=== PATIENT | female | born 1990 | race Caucasian/White ===

== ENCOUNTER 2022-10-16 12:57 | Inpatient (IN) | payer BC ==
[~2022-10-16] VITALS: Ht 170.2 cm; Wt 94.8 kg
[2022-10-16 14:07] VITALS: BP 164/84
[2022-10-16] MEDS ORDERED: MAG SULF 2000 MG/WATER PREMIX 100 ML IV SCH (14:17)
[2022-10-16] MEDS ORDERED: LABETALOL 20 MG/4 ML VIAL IVP SCH (14:30)
[2022-10-16 14:41] LABS: BASOPHILS # (AUTO) 0.1 K/uL (0.00-0.22); EOSINOPHILS # (AUTO) 0.2 K/uL (0-0.4); HEMATOCRIT 33.3 % (36-48); HEMOGLOBIN 10.8 g/dL (12.0-16.0); LYMPHOCYTES # (AUTO) 2.2 K/uL (2.5-16.5); LYMPHOCYTES % (AUTO) 25.9 % (20.5-51.1); MEAN CORPUSCULAR HEMOGLOBIN 26 pg (27-31); MEAN CORPUSCULAR HGB CONC 32 g/dL (33-37); MEAN CORPUSCULAR VOLUME 79.6 fL (80-94); MONOCYTES # (AUTO) 0.5 K/uL (0.8-1.0); MONOCYTES % (AUTO) 6.4 % (1.7-9.3); NEUTROPHILS # (AUTO) 5.4 K/uL (1.8-7.7); NEUTROPHILS % (AUTO) 64.7 % (42.2-75.2); PLATELET COUNT (AUTO) 241 K/uL (140-450); RED BLOOD CELL COUNT(AUTO) 4.19 MIL/uL (4.20-5.40); RED CELL DISTRIBUTION WIDTH 14.1 % (11.6-13.7); WHITE BLOOD COUNT (AUTO) 8.4 K/uL (4.8-10.8)
[2022-10-16 14:49] LABS: APPEARANCE,URINE CLEAR (CLEAR); BILIRUBIN,URINE NEGATIVE (NEGATIVE); BLOOD, URINE 1+ (NEGATIVE); COLOR,URINE YELLOW (YELLOW); LEUKOCYTE ESTERASE ,URINE NEGATIVE (NEGATIVE); NITRITE, URINE NEGATIVE (NEGATIVE); PH,URINE 7.5 (5.0-9.0); UGLUCOSE NEGATIVE (NEGATIVE)
[2022-10-16 15:02] LABS: PROTHROMBIN TIME 9.1 secs (10.8-13.4)
[2022-10-16] MEDS: LACTATED RINGERS 1,000 ML IV SCH (15:03)
[2022-10-16 15:12] LABS: ALBUMIN 2.3 g/dL (3.4-5.0); CARBON DIOXIDE 25.5 mmol/L (21-32); CREATININE 0.6 mg/dL (0.6-1.3); POTASSIUM 4.5 mmol/L (3.5-5.1); TOTAL BILIRUBIN 0.2 mg/dL (0.0-1.0)
[2022-10-16] MEDS: MAG SULF 20 GM/H2O PREMIX DRIP 500 ML IV PRN (15:26)
[2022-10-16 15:43] LABS: URINE TOTAL PROTEIN 138.4 mg/dL (0-12)
[2022-10-16] MEDS ORDERED: BETAMETH ACET/BETAMETH NA PH 30 MG/5 ML VIAL IM ONE (17:09)
[2022-10-16] MEDS: BETAMETH ACET/BETAMETH NA PH 30 MG/5 ML VIAL IM SCH (17:14)
[2022-10-16] MEDS ORDERED: PNV91TAB8 PO (19:06)
[2022-10-17] MEDS ORDERED: MAG SULF 2000 MG/WATER PREMIX 0 ML IV ONE (02:10)
[2022-10-17] MEDS: LACTATED RINGERS 1,000 ML IV SCH ×2 (02:15→14:54)
[2022-10-17] MEDS: MAG SULF 20 GM/H2O PREMIX DRIP 500 ML IV PRN ×3 (02:22→22:19)
--- NOTE | 2022-10-17 10:18 | NUR ---
PATIENT HAS BEEN SCREENED AND CATEGORIZED LOW NUTRITION RISK. PATIENT WILL BE SEEN WITHIN 7 DAYS OF ADMISSION. 10/23/22 REVIEWED BY [address]
[2022-10-17] MEDS: BETAMETH ACET/BETAMETH NA PH 30 MG/5 ML VIAL IM SCH (17:25)
[2022-10-17] MEDS ORDERED: MISOPROSTOL 200 MCG TAB VG SCH (20:00)
[2022-10-17] MEDS ORDERED: MISOPROSTOL 25 MCG TAB ONE (20:25)
[2022-10-18] MEDS ORDERED: MISOPROSTOL 200 MCG TAB VG SCH (02:00)
[2022-10-18] MEDS ORDERED: MISOPROSTOL 25 MCG TAB ONE (02:27)
[2022-10-18] MEDS: LACTATED RINGERS 1,000 ML IV SCH ×2 (04:06→13:36)
[2022-10-18] MEDS: MAG SULF 20 GM/H2O PREMIX DRIP 500 ML IV PRN ×2 (08:13→18:59)
[2022-10-18] MEDS ORDERED: fentaNYL citrate 0.05 MG/ML VIAL ONE (09:45)
[2022-10-18] MEDS ORDERED: ROPIVACAINE 0.2%/NS PREMIX 200 ML EPI ONE (09:45)
[2022-10-18] MEDS ORDERED: OXYTOCIN 20 UNITS/LR PREMIX 1,000 ML IV ONE (10:29)
[2022-10-18] MEDS ORDERED: DOCUSATE SODIUM 100 MG GELCAP PO PRN (18:15)
[2022-10-18] MEDS ORDERED: METHYLERGONOVINE 0.2 MG/ML AMP IM PRN ×2 (18:15→18:45)
[2022-10-18] MEDS ORDERED: MEASLES, MUMPS, AND RUBELLA 1 VIAL SQVAC ONE (18:15)
[2022-10-18] MEDS ORDERED: OXYTOCIN 10 UNITS/ML VIAL IM PRN (18:15)
[2022-10-18] MEDS ORDERED: IBUPROFEN 800 MG TAB PO PRN (18:15)
[2022-10-18] MEDS ORDERED: BENZOCAINE/MENTHOL 20%-0.5% 60 GM CAN TP PRN (18:15)
[2022-10-18] MEDS ORDERED: SIMETHICONE 80 MG TAB.CHEW PO PRN (18:15)
[2022-10-18] MEDS ORDERED: METHYLERGONOVINE 0.2 MG TAB PO PRN (18:15)
[2022-10-18] MEDS ORDERED: MEASLES, MUMPS, AND RUBELLA 1 VIAL SQVAC PRN (18:25)
[2022-10-18] MEDS ORDERED: ONDANSETRON 4 MG/2 ML VIAL IVP PRN (18:45)
[2022-10-18] MEDS ORDERED: MORPHINE SULFATE 5 MG/ML VIAL IVP PRN (18:45)
[2022-10-19] MEDS: LACTATED RINGERS 1,000 ML IV SCH (00:56)
[2022-10-19] MEDS ORDERED: IBUPROFEN 600 MG TAB PO PRN (06:00)
[2022-10-19 08:23] LABS: HEMATOCRIT 26.7 % (36-48); HEMOGLOBIN 8.6 g/dL (12.0-16.0)
[2022-10-19 12:07] LABS: HEPATITIS B SURFACE ANTIGEN Negative (Negative)
== END 2022-10-19 12:10 | disposition home or self-care (01) | DRG 807 ==
LOC: MLD 12:57 → OBSVTOIN 15:20
PROVIDERS: ADMIT Obstetrics & Gynecology; ATTEND Obstetrics & Gynecology
PROC: 10E0XZZ Delivery of Products of Conception, External Approach (ICD-10-PCS; principal; 2022-10-18)
PROC: 3E0R3BZ Introduction of Anesthetic Agent into Spinal Canal, Percutaneous Approach (ICD-10-PCS; 2022-10-18)
PROC: 00HU33Z Insertion of Infusion Device into Spinal Canal, Percutaneous Approach (ICD-10-PCS; 2022-10-18)
DX: O14.94 Unspecified pre-eclampsia, complicating childbirth (principal); Z37.0 Single live birth; O60.14X0 Preterm labor third trimester with preterm delivery third trimester, not applicable or unspecified; Z3A.33 33 weeks gestation of pregnancy; Z20.822 Contact with and (suspected) exposure to COVID-19
CPT/HCPCS: 36415; 51702; 80053; 81001; 82570; 84550; 85018; 85025; 85384; 85610; 85730; 86592; 86762; 86886; 86900; 86901; 87086; 87340; 87653-90; J0702; J2590; J2795; J3010; J3475; J3490